=== PATIENT | male | born 1995 | race African-American/Black ===

== ENCOUNTER 2020-05-21 15:05 | Emergency (ER) | payer OTHER ==
[~2020-05-21] VITALS: Ht 175.3 cm; Wt 104.3 kg
[2020-05-21] MEDS ORDERED: FLEXERIL PO (16:31)
[2020-05-21 17:06] VITALS: BP 132/52
== END 2020-05-21 17:06 | disposition home or self-care (01) ==
LOC: ER 15:05
DX: M54.2 Cervicalgia (principal); V49.88XA Car occupant (driver) (passenger) injured in other specified transport accidents, initial encounter; Y93.89 Activity, other specified; Y92.413 State road as the place of occurrence of the external cause; Y99.9 Unspecified external cause status